=== PATIENT | male | born 1985 | race Caucasian/White ===

== ENCOUNTER 2019-03-08 09:19 | Emergency (ER) | payer SELFPAY ==
[~2019-03-08] VITALS: Ht 177.8 cm; Wt 90.8 kg
[2019-03-08 09:23] VITALS: BP 137/123
--- NOTE | 2019-03-08 09:28 | NUR ---
PT AMBULATED TO BED 1
--- NOTE | 2019-03-08 09:41 | NUR ---
C/O CONTINUOUS "POKING" SUBSTERNAL L SIDED CHEST PAIN 03/24 STARTING YESTERDAY MORNING. PT DENIES N/V/SOB, RECENT ILLNESS/INJURY. SKIN IS WARM/DRY/NFE. PT IS ALERT AND SPEAKING IN FULL, CLEAR SENTENCES, ANSWERING QUESTIONS APPROPRIATELY. BED IN LOW POSITION, SIDE RAIL UP X1. NO ACUTE DISTRESS NOTED AT THIS TIME.
[2019-03-08] MEDS ORDERED: ASPIRIN 325 MG TAB PO ONE ×2 (09:45)
[2019-03-08 10:17] LABS: BASOPHILS % (AUTO) 0.7 % (0.0-2.0); EOSINOPHILS # (AUTO) 0.1 K/uL (0-0.4); EOSINOPHILS % (AUTO) 3.1 % (0.0-4.0); HEMATOCRIT 47.5 % (36-52); HEMOGLOBIN 16.4 g/dL (12.0-18.0); LYMPHOCYTES # (AUTO) 1.3 K/uL (2.0-11.5); MEAN CORPUSCULAR HEMOGLOBIN 33 pg (27-31); MEAN CORPUSCULAR HGB CONC 35 g/dL (33-37); MEAN CORPUSCULAR VOLUME 96.9 fL (80-94); MONOCYTES # (AUTO) 0.4 K/uL (0.8-1.0); MONOCYTES % (AUTO) 7.8 % (1.7-9.3); NEUTROPHILS # (AUTO) 2.8 K/uL (1.8-7.7); NEUTROPHILS % (AUTO) 60.4 % (42.2-75.2); PLATELET COUNT (AUTO) 176 K/uL (140-450); RED CELL DISTRIBUTION WIDTH 13.1 % (11.6-13.7); WHITE BLOOD COUNT (AUTO) 4.7 K/uL (4.8-10.8)
[2019-03-08 10:47] LABS: ANION GAP 12.5 (8-16); CARBON DIOXIDE 27.3 mmol/L (21-32); POTASSIUM 3.8 mmol/L (3.5-5.1)
[2019-03-08 10:58] LABS: CREATINE KINASE MB 0.9 ng/mL (0-3.6)
[2019-03-08 10:59] LABS: ALBUMIN 4.1 g/dL (3.4-5.0); TOTAL BILIRUBIN 0.3 mg/dL (0.0-1.0)
[2019-03-08 12:43] VITALS: BP 127/81
== END 2019-03-08 12:41 | disposition home or self-care (01) ==
LOC: MED 09:19
DX: R07.89 Other chest pain (principal); R06.02 Shortness of breath; F41.9 Anxiety disorder, unspecified; Z87.891 Personal history of nicotine dependence
CPT/HCPCS: 36415; 71045; 80053; 82550; 82553; 83690; 84484; 85025; 93005; 99284; Q0092

== ENCOUNTER 2022-06-25 19:08 | Emergency (ER) | payer SELFPAY ==
[~2022-06-25] VITALS: Ht 177.8 cm; Wt 97.5 kg
[2022-06-25 19:26] VITALS: BP 132/89
--- NOTE | 2022-06-25 19:26 | NUR ---
Patient taken to bed 9.
--- NOTE | 2022-06-25 19:44 | NUR ---
Dr. Orozco examining patient.
[2022-06-25 19:46] LABS: BASOPHILS # (AUTO) 0.1 K/uL (0.00-0.22); BASOPHILS % (AUTO) 0.9 % (0.0-2.0); EOSINOPHILS # (AUTO) 0.2 K/uL (0-0.4); EOSINOPHILS % (AUTO) 3.8 % (0.0-4.0); HEMATOCRIT 45.7 % (36-52); LYMPHOCYTES # (AUTO) 1.8 K/uL (2.0-11.5); LYMPHOCYTES % (AUTO) 31.5 % (20.5-51.1); MEAN CORPUSCULAR HEMOGLOBIN 33 pg (27-31); MEAN CORPUSCULAR HGB CONC 35 g/dL (33-37); MEAN CORPUSCULAR VOLUME 94.1 fL (80-94); MONOCYTES # (AUTO) 0.5 K/uL (0.8-1.0); MONOCYTES % (AUTO) 8.7 % (1.7-9.3); NEUTROPHILS # (AUTO) 3.2 K/uL (1.8-7.7); NEUTROPHILS % (AUTO) 55.1 % (42.2-75.2); PLATELET COUNT (AUTO) 183 K/uL (140-450); RED BLOOD CELL COUNT(AUTO) 4.85 MIL/uL (4.20-6.10); RED CELL DISTRIBUTION WIDTH 12.5 % (11.6-13.7); WHITE BLOOD COUNT (AUTO) 5.8 K/uL (4.8-10.8)
[2022-06-25] MEDS ORDERED: DICYCLOMINE HCL LIQUID 20 MG, ALUMINUM HYD/MAG/SIMETHICONE 30 ML, LIDOCAINE VISCOUS 2% ... PO ONE ×3 (19:50)
--- NOTE | 2022-06-25 19:52 | NUR ---
X-Ray at bedside.
--- NOTE | 2022-06-25 20:00 | NUR ---
36/M BIB SELF C/C CHEST PAIN XTODAY. PER PATIENT CP IS 3/10 FEELS "PRESSURE". PATIENT REPORTS PAIN STAYING IN [facility] WITHOUT RAD. DENIES SOB/N/V/D/C AT HIS TIME. PATIETN AAOX4 AND AMBULATORY. PATIENT PLACED IN GOWN AND MONITOR. SIDE RAIL UP X1 FOR SAFETY. DENIES PMHX, RX NKA
[2022-06-25 20:09] LABS: ALBUMIN 4.1 g/dL (3.4-5.0); ANION GAP 12.2 (8-16); ASPARTATE AMINOTRANSFERASE 14 U/L (15-37); CARBON DIOXIDE 26.5 mmol/L (21-32); CHLORIDE 105 mmol/L (98-107); CREATININE 1.2 mg/dL (0.6-1.3); GFR ARICAN-AMERICAN 87 mL/min (>90); GLUCOSE 117 mg/dL (74-106); POTASSIUM 3.7 mmol/L (3.5-5.1); SODIUM SERUM 140 mmol/L (136-145); TOTAL BILIRUBIN 0.3 mg/dL (0.0-1.0); UREA NITROGEN, BLOOD 14 mg/dL (7-18)
[2022-06-25] MEDS ORDERED: DICYCLOMINE HCL LIQUID 10 MG/5 ML UDC ONE (20:25)
[2022-06-25] MEDS ORDERED: ALUMINUM HYD/MAG/SIMETHICONE 30 ML UDC ONE (20:25)
[2022-06-25 21:05] VITALS: BP 139/83
--- NOTE | 2022-06-25 21:05 | NUR ---
Patient discharged with v/s stable. Written and verbal after care instructions given and explained. Patient verbalized understanding. Ambulatory with to car. All questions addressed prior to discharge. Advised to follow up with PMD.
== END 2022-06-25 21:05 | disposition home or self-care (01) ==
LOC: MED 19:08
DX: R07.89 Other chest pain (principal); K29.70 Gastritis, unspecified, without bleeding
CPT/HCPCS: 36415; 71045; 80053; 84484; 85025; 85379; 93005; 99285; Q0092